=== PATIENT | female | born 1950 | race Caucasian/White ===

== ENCOUNTER → 2016-11-21 | Outpatient (CLI) | payer BC ==
[~2016-11-21] MED LIST: NO HOME MEDICATIONS
== END ==
LOC: MC.RAD 10:34
DX: Z12.31 Encounter for screening mammogram for malignant neoplasm of breast (principal)

== ENCOUNTER → 2017-11-24 | Outpatient (CLI) | payer BC | LOC: MC.RAD 09:58 | DX: Z12.31 Encounter for screening mammogram for malignant neoplasm of breast (principal) ==

== ENCOUNTER → 2018-11-25 | Outpatient (CLI) | payer BC | LOC: MC.RAD 13:45 | DX: Z12.31 Encounter for screening mammogram for malignant neoplasm of breast (principal); N64.89 Other specified disorders of breast ==

== ENCOUNTER → 2018-12-02 | Outpatient (CLI) | payer BC | LOC: MC.RAD 13:30 | DX: N64.89 Other specified disorders of breast (principal) | CPT/HCPCS: G0279 ==

== ENCOUNTER → 2019-06-14 | Outpatient (CLI) | payer BC | LOC: MC.RAD 08:30 | DX: R92.8 Other abnormal and inconclusive findings on diagnostic imaging of breast (principal) | CPT/HCPCS: G0279 ==

== ENCOUNTER → 2020-01-07 | Outpatient (CLI) | payer BC | LOC: MC.RAD 11:25 | DX: Z12.31 Encounter for screening mammogram for malignant neoplasm of breast (principal) ==

== ENCOUNTER → 2020-02-09 | Outpatient (CLI) | payer BC | LOC: ZCOL.LAB 07:32 | DX: Z20.828 Contact with and (suspected) exposure to other viral communicable diseases (principal) ==

== ENCOUNTER → 2021-02-13 | Outpatient (CLI) | payer BC | LOC: MC.RAD 01-10 13:15 | DX: Z12.31 Encounter for screening mammogram for malignant neoplasm of breast (principal) ==

== ENCOUNTER 2022-01-02 14:56 | Outpatient (CLI) | payer BC ==
[~2022-01-02] VITALS: Wt 51.0 kg
[2022-01-02] MEDS ORDERED: SYNTHROID0.05 MG/TA PO (15:56)
[2022-01-02 16:00] VITALS: BP 101/60; PULSE 75; TEMP 98.5
== END 2022-01-02 15:45 | disposition home or self-care (01) ==
LOC: EUO 14:56
DX: M81.0 Age-related osteoporosis without current pathological fracture (principal)
CPT/HCPCS: J3489

== ENCOUNTER → 2022-01-22 | Outpatient (CLI) | payer BC ==
[~2022-01-22] MED LIST changes: +SYNTHROID0.05 MG/TA PO
== END ==
LOC: COL.VAS 09:53
DX: M79.604 Pain in right leg (principal); M79.89 Other specified soft tissue disorders; J98.8 Other specified respiratory disorders

== ENCOUNTER → 2023-01-24 | Outpatient (CLI) | payer MEDICARE, BC | LOC: MC.RAD 07:23 | DX: Z12.31 Encounter for screening mammogram for malignant neoplasm of breast (principal) ==